=== PATIENT | male | born 2000 | race Caucasian/White ===

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

== ENCOUNTER → 2021-08-05 | Outpatient (CLI) | payer OTHER ==
[2021-08-05 15:28] LABS: BASO % 0.4 % (0.0-1.0); EOS # 0.1 10^3/uL (0.0-0.5); EOS % 1.8 % (0.0-3.0); HEMATOCRIT 44.2 % (42.0-52.0); HEMOGLOBIN 15.2 g/dl (13.5-17.5); LYMPH # 2.7 10^3/uL (1.5-5.0); LYMPH % 38.7 % (24.0-44.0); MEAN CORPUSCULAR HEMOGLOBIN 29.4 pg (27.0-33.0); MEAN CORPUSCULAR HGB CONC 34.4 g/dl (32.0-36.5); MEAN CORPUSCULAR VOLUME 85.5 fl (80.0-96.0); MONO # 0.6 10^3/uL (0.0-0.8); MONO % 8.6 % (2.0-8.0); NEUTROPHILS # 3.5 10^3/uL (1.5-8.5); NEUTROPHILS % 50.1 % (36.0-66.0); PLATELET COUNT, AUTOMATED 291 10^3/uL (150-450); RED BLOOD COUNT 5.17 10^6/uL (4.30-6.10); WHITE BLOOD COUNT 7.1 10^3/uL (4.0-10.0)
[2021-08-05 15:50] LABS: HEMOGLOBIN A1c 5.1 %
[2021-08-05 16:06] LABS: ALBUMIN 4.4 GM/DL (3.2-5.2); ALT/SGPT 28 U/L (12-78); BILIRUBIN,TOTAL 0.6 MG/DL (0.2-1.0); BLOOD UREA NITROGEN 11 MG/DL (7-18); CALCIUM LEVEL 9.8 MG/DL (8.5-10.1); CARBON DIOXIDE LEVEL 26 MEQ/L (21-32); CHLORIDE LEVEL 109 MEQ/L (98-107); CHOLESTEROL LEVEL 137 MG/DL (<200); CHOLESTEROL RISK RATIO 4.151 (<5); CREATININE FOR GFR 1.02 MG/DL (0.70-1.30); GLOMERULAR FILTRATION RATE > 60.0 (>60); GLUCOSE, FASTING 84 MG/DL (70-100); HDL CHOLESTEROL 33 MG/DL (>40); LDL CHOLESTEROL 64 MG/DL (<100); NON-HDL-C 104 MG/DL; POTASSIUM SERUM 4.4 MEQ/L (3.5-5.1); SODIUM LEVEL 141 MEQ/L (136-145); TOTAL PROTEIN 7.3 GM/DL (6.4-8.2); TRIGLYCERIDES LEVEL 199 MG/DL (<150)
== END ==
LOC: M LAB 15:07
PROVIDERS: ATTEND Nurse Practitioner Family
DX: F41.0 Panic disorder [episodic paroxysmal anxiety] (principal); E66.9 Obesity, unspecified; K62.5 Hemorrhage of anus and rectum; Z68.30 Body mass index [BMI] 30.0-30.9, adult

== ENCOUNTER 2024-04-27 12:49 | Day surgery (SDC) | payer OTHER ==
[~2024-04-27] VITALS: Ht 185.4 cm; Wt 91.2 kg
[2024-04-27] MEDS ORDERED: propofoL 200 MG/20 ML VIAL As Ordered ONE (13:10)
[2024-04-27] MEDS ORDERED: ONDANSETRON 4MG 2ML VIAL As Ordered ONE (13:10)
[2024-04-27] MEDS ORDERED: ROCURONIUM BROMIDE 50MG/5ML VIAL As Ordered ONE (13:10)
[2024-04-27] MEDS ORDERED: SUGAMMADEX SODIUM 500 MG/5 ML VIAL (BRIDION) As Ordered ONE (13:10)
[2024-04-27] MEDS ORDERED: LIDOCAINE 2% 100MG/5ML SDV (FOR ANES.) As Ordered ONE (13:10)
[2024-04-27] MEDS ORDERED: fentaNYL 100 MCG/2 ML INJECTION As Ordered ONE (13:16)
[2024-04-27] MEDS ORDERED: MIDAZOLAM INJ 2MG/2ML VIAL As Ordered ONE (13:16)
[2024-04-27] MEDS: LR 1,000 ML IV SCH (13:47)
[2024-04-27] MEDS ORDERED: ACETAMINOPHEN 1000MG/100ML IV BAG As Ordered ONE (13:53)
[2024-04-27] MEDS: AMPICILLIN SOD/SULBACTAM SOD 3 GM in SODIUM CHLORIDE 0.9% 100ML ADD 100 ML IV ONE (13:57)
[2024-04-27] MEDS: BUPivacaine LIPOSOME/PF 266MG 20ML VIAL (13.3MG/ML)(EXPAREL) As Ordered ONE (14:20)
[2024-04-27] MEDS: CHLORHEXIDINE GLUCONATE 0.12 % 15ML UDC (PERIDEX ORAL RINSE) As Ordered ONE (14:37)
[2024-04-27] MEDS: LIDOCAINE 2% W/ EPINEPHRINE 1.7 ML DENTAL INJ As Ordered ONE (14:38)
[2024-04-27] MEDS: fentaNYL 100 MCG/2 ML INJECTION IV PRN (15:12)
[2024-04-27] MEDS: oxyCODONE 5MG TAB PO PRN (15:17)
[2024-04-27] MEDS: ONDANSETRON 4MG 2ML VIAL IV PRN (16:10)
[2024-04-27 17:00] VITALS: BP 134/68; TEMP 97.2; O2SAT 98
== END 2024-04-27 17:05 | disposition home or self-care (01) ==
LOC: M SDC 12:49
PROVIDERS: ATTEND Dentist
DX: K02.9 Dental caries, unspecified (principal)
CPT/HCPCS: 88300; D7140; D7210; J0131; J0295; J0666; J1100; J2250; J2405; J3010

== ENCOUNTER 2024-08-13 11:33 | Emergency (ER) | payer OTHER ==
[~2024-08-13] VITALS: Ht 182.9 cm; Wt 89.2 kg
[2024-08-13] MEDS ORDERED: XANA0.25 PO (11:42)
[2024-08-13 16:16] VITALS: BP 127/86; TEMP 97.2; O2SAT 99
[2024-08-13] MEDS: ALBUTEROL 90 MCG/ACT 8GM HFA INHALER INH ONE (16:16)
[2024-08-13] MEDS ORDERED: ALBU8.5H INH (16:33)
== END 2024-08-13 16:44 | disposition home or self-care (01) ==
LOC: M ED 11:33
DX: R06.9 Unspecified abnormalities of breathing (principal); K21.9 Gastro-esophageal reflux disease without esophagitis; F41.9 Anxiety disorder, unspecified